=== PATIENT | female | born 1980 | race Two or more races ===

== ENCOUNTER 2016-04-27 09:03 | Emergency (ER) | payer OTHER ==
[~2016-04-27] VITALS: Ht 167.6 cm; Wt 63.5 kg
[2016-04-27 09:25] VITALS: BP 123/75
[2016-04-27] MEDS ORDERED: ACETAMINOPHEN-1 EAC1 ORAL (11:30)
[2016-04-27] MEDS ORDERED: CYCLOBENZAPRINE10 MG ORAL (11:30)
[2016-04-27] MEDS ORDERED: IBUPROFEN600 MG ORAL (11:30)
[2016-04-27 11:45] VITALS: BP 123/75
--- NOTE | 2016-04-27 12:06 | Diagnostic Imaging Report ---
Indication: PAIN Technique: 2 views of the left hip Comparison: None Findings: No acute fractures. No dislocations. Joint spaces are preserved. Impression: Negative
--- NOTE | 2016-04-27 13:52 | Diagnostic Imaging Report ---
Indication: PAIN status post fall Technique: 3 views of the lumbar spine Comparison: None Findings:Bony alignment is normal. Vertebral body heights are preserved. Disc spaces are preserved. Pedicles are intact. Sacral arches are preserved. Sacroiliac joint spaces are preserved. Impression:Negative
--- NOTE | 2016-04-27 14:57 | Emergency Room Report ---
History of Present Illness General Chief Complaint: Lower Back Pain or Injury Source: Patient Present Illness HPI 35-year-old female presents ED complaining of left hip and back pain times x 4 days. States that she had a fall at work landing on her back on Sunday. She states the pain is not getting better. Pain is throbbing, 8/10, radiating down the left leg. No other aggravating or relieving factors. Denies any other injuries. Denies bowel or bladder incontinence. Denies any m or weakness. Denies any other associated symptoms Allergies: Coded Allergies: No Known Allergies (Unverified , 04/27/16) Patient History Past Medical History: none Past Surgical History: none Pertinent Family History: none Social History: Denies: alcohol use, drug use, smoking Last Menstrual Period: 04/24/16 Now: No Immunizations: UTD Reviewed Nursing Documentation: PMH: Agreed, PSxH: Agreed Nursing Documentation-PMH Past Medical History: No Stated History Review of Systems All Other Systems: negative except mentioned in HPI Physical Exam Vital Signs Date Time Temp Pulse Resp B/P Pulse Ox O2 Delivery O2 Flow Rate FiO2 04/27/16 09:16 98.1 98 14 123/75 99 Room Air Sp02 EP Interpretation: reviewed, normal General Appearance: no apparent distress, alert, GCS 15, non-toxic Head: normocephalic Eyes: bilateral eye PERRL, bilateral eye normal inspection ENT: normal ENT inspection Neck: normal inspection Respiratory: normal inspection Cardiovascular #1: normal inspection Gastrointestinal: normal inspection Rectal: deferred Genitourinary: no vertebral tenderness Musculoskeletal: tender - paraspinal Neurologic: alert, oriented x3, responsive, motor strength/tone normal, sensory intact, speech normal Psychiatric: judgement/insight normal, memory normal, mood/affect normal, no suicidal/homicidal ideation Skin: normal inspection Lymphatic: normal inspection Medical Decision Making Diagnostic Impression: Primary Impression: Low back pain Qualified Codes: M54.5 - Low back pain ER Course Hospital Course 35-year-old female presents ED complaining of back pain and left hip pain status post trip and fall x4 days Differential diagnoses include: Fracture, dislocation, sprain, contusion Clinical course Patient placed on stretcher. After initial history and physical, I ordered pain medications and Xrays of L-spine, left hip Xrays shows no acute fracture/dislocation. On reassessment pain is improved Diagnosis - low back pain Stable and discharged to home with prescription for Motrin, Flexeril. apply heat. weight bear as tolerated. Followup with PMD. Return to ED if symptoms recur or worsen Other X-Ray Diagnostic Results Other X-Ray Diagnostic Results : X-Ray Ordered: L spine, L hip EP Interpretation: No Findings: no fractures, no soft tissue swelling Number of Views: 3 Other Impression L-spine- No fracture, no dislocation, no soft tissue swelling Left hip-No fracture, no dislocation, no soft tissue swelling Last Vital Signs Date Time Temp Pulse Resp B/P Pulse Ox O2 Delivery O2 Flow Rate FiO2 04/27/16 11:45 98.1 98 14 123/75 99 Room Air Status: improved Disposition: HOME, SELF-CARE Condition: Stable Scripts Acetaminophen With Codeine (T#3) (TYLENOL #3 TAB*) Y Tab 1 TAB ORAL Q8H Y for For Pain, #20 TAB Prov: MOHINDER LOPEZ M.D. 04/27/16 Cyclobenzaprine Hcl* (FLEXERIL*) 10 Mg Tablet 10 MG ORAL TID Y for Muscle Spasm, #20 TAB Prov: MOHINDER LOPEZ M.D. 04/27/16 Ibuprofen* (MOTRIN*) 600 Mg Tablet 600 MG ORAL Q8H Y for For Pain, #30 TAB 0 Refills Prov: MOHINDER LOPEZ M.D. 04/27/16 Departure Forms: Return to Work Return to Work Date: May 01, 2016 Work Restrictions: No Heavy Lifting Patient Instructions: Low Back Sprain With [facility] MOHINDER LOPEZ M.D. Apr 27, 2016 14:57
== END 2016-04-27 11:45 | disposition home or self-care (01) ==
LOC: EMR 10:14
DX: M54.5 Low back pain (principal); M25.552 Pain in left hip; W19.XXXA Unspecified fall, initial encounter; Y92.511 Restaurant or cafe as the place of occurrence of the external cause
CPT/HCPCS: 72020; 73502; 81025; 99284